=== PATIENT | female | born 2000 | race Caucasian/White ===

== ENCOUNTER 2018-02-14 20:14 | Emergency (ER) | payer OTHER ==
--- NOTE | 2018-02-14 20:30 | EDPHY ---
H & P Stated Complaint: hit back of head on Sat, ongoing RAZA Time Seen by Provider: 02/14/18 20:22 HPI/ROS: CHIEF COMPLAINT: Head injury HISTORY OF PRESENT ILLNESS: 17-year-old female generally healthy, no anticoagulant use, states that 2 nights ago she had been drinking heavy amounts of alcohol and friends reported that she was standing on a table, fell backward impacting her occiput against a table with possible loss of consciousness. She is amnestic to events. She woke yesterday complaining of severe headache in the occiput but also noticed left frontal hematoma. She is complaining of severe headache, photophobia, difficulty concentrating. Denies midline C-spine pain. Denies peripheral paresthesia, weakness, numbness. Denies nausea or vomiting. Denies other complaints of pain or discomfort such as chest pain or trauma, back pain or trauma, abdominal pain or trauma, dyspnea. PRIMARY CARE PROVIDER: REVIEW OF SYSTEMS: 10 systems reviewed and negative with the exception of the elements mentioned in the history of present illness PAST MEDICAL/SURGICAL HISTORY: no anticoagulant use, no relevant medical/ surgical history SOCIAL HISTORY: Positive heavy alcohol use at time of incident PHYSICAL EXAM 1) GENERAL: Well-developed, well-nourished, alert and oriented. Appears to be in no acute distress. Answering questions appropriately. 2) HEAD: Normocephalic, tender to palpation occipital region. Left frontal hematoma noted. 3) HEENT: Pupils equal, round, reactive to light bilaterally. Negative Horners. Nasopharynx, oropharynx, clear. No deformity or angulation of nose. No septal hematoma. No rhinorrhea. No oral trauma. Ears bilaterally with normal tympanic membranes. No hemotympanum. No fluid or blood in the external auditory canal. No raccoon eyes. No May sign. Teeth are normally aligned with no gross malocclusion, TMJ bilaterally nontender, facial bones nontender including the zygomatic arch, maxilla mandible. 4) NECK: No cervical collar is on. Posterior cervical spine is nontender, no stepoff, no effusion. Full range of motion which does not elicit any midline cervical spine pain, no posterior midline tenderness, no step-off. 5) LUNGS: Clear to auscultation bilaterally, no wheezes, no rhonchi, no retractions. No obvious signs of trauma. No chest wall pain. No flaring, no grunting. Moving symmetrically. No crepitus. 6) HEART: [Regular rate and rhythm, 7) ABDOMEN: No guarding, no rebound, no focal tenderness, no peritoneal signs, no signs of trauma, no ecchymosis 8) MUSCULOSKELETAL: Moving all extremities, no focal areas of tenderness, no obvious trauma. 9) BACK: No midline vertebral tenderness, no fluctuance, no step-off, no obvious trauma, no visual or palpable abnormality. 10) SKIN: No laceration. No abrasion DIFFERENTIAL DIAGNOSIS: Not necessarily in any particular order, my differential diagnosis includes, but is not limited to, concussion, skull fracture, intraparenchymal contusion, subarachnoid, subdural and epidural hematoma. The patient understands that this diagnosis is provisional and can never be 100% accurate. - Personal History LMP (Females 10-55): Now Current Tetanus/Diphtheria Vaccine: No - Medical/Surgical History Hx Asthma: No Hx Chronic Respiratory Disease: No Hx Diabetes: No Hx Cardiac Disease: No Hx Renal Disease: No Hx Cirrhosis: No Hx HIV/AIDS: No Hx Splenectomy or Spleen Trauma: No Other PMH: denies - Social History Smoking Status: Never smoked Constitutional: Initial Vital Signs Temperature (C) 37.1 C 02/14/18 20:16 Heart Rate 60 02/14/18 20:16 Respiratory Rate 16 02/14/18 20:16 Blood Pressure 125/69 H 02/14/18 20:16 O2 Sat (%) 100 02/14/18 20:16 O2 Delivery Mode Room Air Allergies/Adverse Reactions: No Known Allergies Allergy (Unverified 02/14/18 20:18) Home Medications: Medication Instructions Recorded NK [No Known Home Meds] 02/14/18 Medical Decision Making - Diagnostics Imaging Results: Imaging Impressions Head CT 02/14/18 20:30 Impression: 1. No significant intracranial abnormality seen. If symptoms worsen, additional imaging may be necessary. Findings discussed with Simone SUGGS at 21:15 hour, 02/14/2018. Images reviewed myself ED Course/Re-evaluation: 8:30 p.m.: Head CT ordered in this patient for trauma for the following indication: severe headache. Indications risks benefits discussed with patient and she consents. I saw this patient independently based on established practice protocols. Care of patient under supervision of secondary supervising physician Dr Daja Salazar . Re-evaluation. Discussed with the patient her negative imaging results. She remains with a nonfocal exam, answering questions appropriately. Plan will be discharge follow up with Dr. Teresita Camacho. Given my usual and instructions customary head injury precautions. She feels comfortable being discharged. All questions and concerns addressed by myself. Departure - Departure Disposition: Home, Routine, Self-Care Clinical Impression: Head injury due to trauma Qualifiers: Encounter type: initial encounter Qualified Code(s): S09.90XA - Unspecified injury of head, initial encounter Concussion Qualifiers: Encounter type: initial encounter Loss of consciousness presence/duration: with LOC of unspecified duration Qualified Code(s): S06.0X9A - Concussion with loss of consciousness of unspecified duration, initial encounter Condition: Good Instructions: Concussion (ED), Head Injury (ED) Additional Instructions: ALTHOUGH THERE IS NO EVIDENCE OF SERIOUS HEAD INJURY AT THIS TIME, DELAYED SIGNS CAN APPEAR 24 TO 48 HOURS AFTER INJURY. PLEASE RETURN TO THE EMERGENCY DEPARTMENT (ED) IMMEDIATELY IF YOU HAVE INCREASED HEADACHE, PERSISTENT HEADACHE , VOMITING, WEAKNESS, CONFUSION OR VISUAL PROBLEMS. WE RECOMMEND THAT YOU DO NOT RESUME CONTACT SPORTS OR ACTIVITIES THAT TAKE COORDINATION OR BALANCE SUCH SKIING OR RIDING A BICYCLE UNTIL CLEARED TO DO SO BY YOUR DOCTOR OR BY A NEUROLOGIST. Referrals: Teresita Camacho MD [Medical Doctor] - 5-7 days, call for appt.
[2018-02-14 21:40] VITALS: BP 130/84
== END 2018-02-14 21:36 | disposition home or self-care (01) ==
DX: S09.90XA Unspecified injury of head, initial encounter (principal); S06.0X9A Concussion with loss of consciousness of unspecified duration, initial encounter; W01.190A Fall on same level from slipping, tripping and stumbling with subsequent striking against furniture, initial encounter